=== PATIENT | female | born 1935 | race Caucasian/White ===

== ENCOUNTER → 2017-01-30 | Outpatient (CLI) | payer MEDICARE, BC ==
[~2017-01-30] MED LIST: ALDACTONE25 MG PO; AMIODARONE HCL200 MG PO; AMOXICILLIN PO; ASPIRIN PO; ASPIRIN81 M1 PO; ASPIRIN81 MG PO; AUGMENTIN PO; BENADRYL PO; BENADRYL25 MG PO; BP MED; CELEXA20 M1 PO; CELEXA20 MG PO; ELIQUIS2.5 MG PO; ELIQUIS5 MG PO; EPIPEN0.3 MG/0.1 IM; FAMOTIDINE20 M1 PO; FLAGYL PO; FLECAINIDE ACET50 MG PO; FLONASE 0.05% N16 G1; HYDRALAZINE HCL50 MG PO; HYDROCHLOROTHIA25 MG PO; HYDROXYZINE HCL25 M1 PO; IMDUR-ER30 M1 PO; LASIX20 MG PO; LISINOPRIL PO; LOPRESSOR HCT1 EACH PO; LOPRESSOR PO; METAMUCIL0.52 G PO; METOPROLOL TART25 MG PO; METOPROLOL-HCT1 EAC1 PO; METOPROLOL/HCTZ PO; NORVASC PO; PHENERGAN PO; POTASSIUM CHLO10 ME1 PO; PREDNISONE PO; PREDNISONE10 MG/DOSE PO; PRILOSEC PO; SIMVASTATIN40 MG PO; SYNTHROID PO; SYNTHROID75 MCG PO; SYNTHROID88 MCG PO; TAMBOCAR PO; TOPROL XL; TRIAMTERENE/HCT1 TA2 PO; VICODIN 5/500 T1 TAB PO; VYTORIN 10/20 T1 TAB PO; ZESTORETIC 20/11 TAB; ZOCOR PO
--- NOTE | ~2017-01-30 | MY11 ---
[facility] A Service of [facility] RADIOLOGY TEXT RESULTS PATIENT: VU KEEN LOCATION: [facility] : 37 UNIT #: [id number] AGE: [address]: Vicente Glez MD SEX: F ORDER DR: [id number] [address] [address] [id number] O MR#: [id number] Acc #: [id number] NAME: VU KEEN : 1935 SEX: F STUDY DATE/TIME: 01/30/2017 8:50 UNIT: [facility] ROOM: STUDY DESCRIPTION: MY Mammogram Screening Dig Artie Attending Physician: Vicente Glez M.D. Referring Physician: Vicente Glez M.D. Ordering Physician: Vicente Glez M.D. Primary Care Physician: Vicente Glez M.D. MEDICAL IMAGING REPORT This report is preliminary unless electronic signature is present. EXAM Digital screening mammogram 01/30/2017 HISTORY 81-year-old woman. Positive family history, sister age 55. Annual screen. COMPARISON Mammograms date to 06/12/2006 with most recent screening comparison 01/29/2016. FINDINGS Digital imaging of each breast was completed utilizing screening protocol. Review includes FDA-approved CAD device. Breast parenchyma is dense and somewhat heterogeneous with generalized fibronodular parenchymal pattern. 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 There is no interval occurring mass. I see no suspicious microcalcifications and no architectural deformity. Subareolar duct prominence bilaterally is stable. IMPRESSION Stable benign mammogram. Annual screening recommended. Patient's over the age of 40 are entered into a reminder system with target due date for the next mammogram. BIRADS: 2 Benign findings Dictated by... [facility] A Service [facility] RADIOLOGY TEXT RESULTS PATIENT: VU KEEN LOCATION: [facility] : 36 UNIT #: [id number] AGE: [address]: Vicente Glez MD SEX: F ORDER DR: Ry Ward M.D. THIS IS AN ELECTRONICALLY VERIFIED REPORT Ry Ward M.D. at 01/30/2017 12:38 PM TAYE/marlon TD: 01/30/2017 09:55 JOB #: [id number] MEDICAL IMAGING REPORT Page 1 of 1
== END | disposition home or self-care (01) ==
LOC: SMAM 08:16
DX: Z12.31 Encounter for screening mammogram for malignant neoplasm of breast (principal); Z80.3 Family history of malignant neoplasm of breast
CPT/HCPCS: G0202

== ENCOUNTER 2017-04-22 15:16 | Inpatient (IN) | payer MEDICARE, BC ==
--- NOTE | ~2017-04-22 | EKG ---
PATIENT: VU KEEN UNIT #: [id number] Ventricular Rate: 62 BPM Atrial Rate: 62 BPM P-R Interval: 222 ms QRS Duration: 142 ms Q-T Interval: 474 ms QTC Calculation(Bezet): 481 ms P [place]: 70 degrees Calculated R [place]: -29 degrees Calculated T [place]: 133 degrees Diagnosis Line: Sinus rhythm with 1st degree A-V block with Diagnosis Line: occasional Premature ventricular complexes Diagnosis Line: Left bundle branch block Diagnosis Line: Abnormal ECG Diagnosis Line: When compared with ECG of 23-APR-2017 06:06, Diagnosis Line: Premature ventricular complexes are now Present Diagnosis Line: T wave inversion more evident in Anterior leads Diagnosis Line: Confirmed by SANDRA ENGLAND MD ([id number]) on 04/29/2017 Diagnosis Line: 2:29:48 PM INTERPRETING MD: SAMANTA STEVENSON
--- NOTE | ~2017-04-22 | CR72 ---
[facility] A Service of [facility] RADIOLOGY TEXT RESULTS PATIENT: VU KEEN LOCATION: [facility] 313-01 : 36 UNIT #: [id number] AGE: [address]: Alice Leos MD SEX: F ORDER DR: [id number] [facility] [address] [facility]. [place], [place] [address] [id number] I MR#: [id number] Acc #: [id number] NAME: VU KEEN : 1935 SEX: F STUDY DATE/TIME: 04/22/2017 18:37 UNIT: CEDOF ROOM: 24751 STUDY DESCRIPTION: CR Chest Single View Portable Attending Physician: Neelam Leavitt M.D. Ordering Physician: Dewayne Mesa M.D. Primary Care Physician: Vicente Glez M.D. MEDICAL IMAGING REPORT This report is preliminary unless electronic signature is present EXAM Portable chest 1 view, 04/22/2017 COMPARISON 08/12/2016 CLINICAL HISTORY Short of air and cough for 2 days. FINDINGS There is diffuse interstitial prominence right slightly greater than left, but no dense consolidation. Overall, the findings appear to suggest new interstitial prominence superimposed on some chronic lung disease. There is no dense consolidation, effusion or pneumothorax. Question interstitial infiltrate versus edema. Dictated by... Marc Dahl M.D. THIS IS AN ELECTRONICALLY VERIFIED REPORT Marc Dahl M.D. at 04/24/2017 5:31 PM TEV/psc TD: 04/22/2017 21:37 JOB #: [id number] MEDICAL IMAGING REPORT Page 1 of 1 COPY
--- NOTE | ~2017-04-22 | EKG ---
PATIENT: VU KEEN UNIT #: [id number] Ventricular Rate: 67 BPM Atrial Rate: 67 BPM P-R Interval: 236 ms QRS Duration: 140 ms Q-T Interval: 400 ms QTC Calculation(Bezet): 422 ms P [place]: 66 degrees Calculated R [place]: -42 degrees Calculated T [place]: 119 degrees Diagnosis Line: Poor data quality, interpretation may be Diagnosis Line: adversely affected Diagnosis Line: Sinus rhythm with 1st degree A-V block Diagnosis Line: Left axis deviation Diagnosis Line: Left ventricular hypertrophy with QRS widening and Diagnosis Line: repolarization abnormality Diagnosis Line: Inferior infarct , age undetermined Diagnosis Line: Abnormal ECG Diagnosis Line: No previous ECGs available Diagnosis Line: Confirmed by SANDRA ENGLAND MD ([id number]) on 04/23/2017 Diagnosis Line: 8:22:39 PM INTERPRETING MD: SAMANTA STEVENSON
--- NOTE | ~2017-04-22 | HP ---
Unit #: [id number] #: [id number] Patient: VU KEEN [id number] [address] [place], [place] [address] [id number] I MR#: [id number] NAME: VU KEEN ROOM: 14446 Age: 81 Sex: F Admission Date: 04/22/2017 : 1935 Attending Physician: Neelam Leavitt M.D. Primary Care Physician: Vicente Glez M.D. HISTORY AND PHYSICAL CHIEF COMPLAINT Dyspnea on exertion. HISTORY This pleasant 81-year-old female with paroxysmal atrial fibrillation, who is anticoagulated, maintained on antiarrhythmics, hypertension and hypothyroidism, is admitted for dyspnea on exertion. The patient states that she was well until yesterday when she fell ill. This morning she experienced dyspnea on exertion, nausea, diaphoresis, weakness and lightheadedness, denies chest pressure with the above. She has a bit of a chronic cough which was mainly upper but notes that her cough increased over the past two days, is nonproductive. No fevers, sweats or chills with the above. No pedal edema. She presented to this emergency department this afternoon with stable vital signs, afebrile. Chest x-ray shows diffuse interstitial prominence right greater than left which could be infiltrates versus congestive heart failure. In the ER she was bolused with a liter of saline, given Solu-Medrol, Rocephin and Zithromax along with a DuoNeb. I believe the EKG is unchanged although there is poor R-wave progression which may be related to lead placement. PAST MEDICAL HISTORY 1. Nonobstructive coronary artery disease on cardiac catheterization 09/2006 which revealed luminal irregularities. 2. Paroxysmal atrial fibrillation, on Eliquis. 3. Hypertension. 4. Hyperlipidemia. 5. Thyroid cancer, status post thyroidectomy. 6. Diverticular disease. 7. Angioedema in 2010, on Avalide. PAST SURGICAL HISTORY 1. Colonoscopy. Patient was noted to have sigmoid diverticulosis and internal hemorrhoids. 2. Appendectomy. 3. Left elbow surgery 4. Thyroidectomy. 5. D/C. ALLERGIES Avalide and Norvasc. HOME MEDICATIONS From the best I can determine include: Unit #: [id number] #: [id number] Patient: VU KEEN 1. Metoprolol 25 mg daily. 2. Synthroid 0.088 mg daily. 3. Flecainide 50 mg b.i.d. 4. Celexa 20 mg q.h.s. 5. Zocor 60 mg daily. 6. Eliquis 5 mg b.i.d. FAMILY HISTORY CAD. SOCIAL HISTORY The patient lives with her son, she is a lifelong nonsmoker but is exposed to secondhand smoke, does not drink alcohol. REVIEW OF SYSTEMS Notable for shortness of breath, cough, weakness, lightheadedness, nausea, PAF, CAD, hypertension, hyperlipidemia, thyroid cancer, diverticular disease, abovementioned surgeries. All other systems were reviewed and are otherwise negative. PHYSICAL EXAMINATION GENERAL: Pleasant, young-appearing 81-year-old female currently in no acute distress. VITAL SIGNS: Temperature 97.7. Pulse 61. Respirations 16. Blood pressure 144/74. O2 saturation is 99% on room air. HEENT: Eyes PERRLA. Extraocular muscles are intact. Pharynx is benign. NECK: Supple, without adenopathy or thyromegaly. CHEST: Reveals crackles, particularly in the right side although also at the left base. CARDIAC: Normal S1 and S2, without murmur. ABDOMEN: Bowel sounds are present. The patient's bladder is full but otherwise no masses. No hepatosplenomegaly or tenderness. EXTREMITIES: Without cyanosis, clubbing or edema. Pedal pulses are present. NEUROLOGIC EXAM: Patient is awake, alert, oriented. Cranial nerves are intact. Equal strength throughout. DIAGNOSTIC STUDIES ADMISSION LABORATORY: Hematocrit is 40.3, normal white count and platelet count. Initial troponin less than 0.05, second troponin is 0.06. SMA-12: Sodium 134. IMAGING: Chest x-ray shows diffuse interstitial prominence right greater than left which could represent pneumonia versus congestive heart failure. CARDIOVASCULAR: EKG sinus rhythm, rate 67, with Qs noted inferiorly which were noted previously, and poorer R wave progression as compared to an EKG last year. However, the poorer R-wave progression may be related to lead placement. I am unsure at this point of time. Intraventricular conduction delay is old along with T-wave inversions I and aVL which are old. ASSESSMENT 1. Dyspnea on exertion and cough which could represent community-acquired pneumonia, obviously need to be concerned about congestive heart failure. Cardiac catheterization 2005 showed luminal irregularities. Patient does have a history of paroxysmal atrial fibrillation and is in her normal sinus rhythm on Eliquis and Unit #: [id number] #: [id number] Patient: VU KEEN antiarrhythmic drugs. 2. Essential hypertension. 3. Hypothyroidism. PLANS 1. Rocephin and doxycycline pending further workup. Will check a procalcitonin level. 2. STAT BNP and repeat cardiac enzymes. Will ask Cardiology to see in the morning. 3. Repeat chest x-ray in the morning. 4. Add aspirin for now. 5. Is and Os and daily weights. Dictated by Neelam Leavitt M.D. AML/cf TD: 04/22/2017 21:23 JOB #: [id number] HISTORY AND PHYSICAL Page 1 of 1 X Neelam Leavitt MD X HISTORY AND PHYSICAL
--- NOTE | ~2017-04-22 | DS ---
Unit #: [id number] #: [id number] Patient: VU KEEN [id number] [address] [address] [id number] I MR#: [id number] NAME: VU KEEN ROOM: 313 Age: 81 Sex: F Admission Date: 04/22/2017 : 1935 Discharge Date: 04/24/2017 Attending Physician: Alice Leos M.D. Primary Care Physician: Vicente Glez M.D. DISCHARGE SUMMARY PRINCIPAL DIAGNOSES 1. Acute exacerbation of chronic systolic congestive heart failure with ejection fraction of 45%. 2. Moderate pulmonary hypertension. 3. Moderate mitral regurgitation. 4. Paroxysmal atrial fibrillation. 5. Sick sinus syndrome. 6. Hypertension, controlled. 7. Hyperlipidemia. 8. Hypothyroidism following thyroidectomy for thyroid cancer. 9. Diverticular disease. CONSULTATION Dr. Velázquez, Cardiology. PROCEDURES 1. Left-sided heart catheterization on April 24, 2017 with no fixed stenosis on coronary angiography. Left ventricular systolic function reduced at 45%. Anterolateral hypokinesis noted. Moderate pulmonary artery hypertension. Moderate mitral regurgitation with a dilated left atrium. No gradient across the aortic valve noted. Sick sinus syndrome, paroxysmal atrial fibrillation was noted during catheterization. 2. A two-dimensional echocardiogram on April 23, 2015 with findings of decreased ejection fraction and mitral regurgitation. 3. Chest x-ray on April 22, 2017 with diffuse interstitial prominence, right greater than left, most consistent with pulmonary edema. CLINICAL HISTORY AND HOSPITAL COURSE Ms. Keen is a very nice 81-year-old female, who presents to the emergency department with dyspnea on exertion. Please refer to H and P for further details. Chest x-ray revealed diffuse interstitial prominence, right greater than left. Their concern is perhaps patient had pneumonia and she was placed on antibiotic therapy in addition to Solu-Medrol. They were also concerned that perhaps this might represent congestive heart failure and patient was admitted. I will note patient was afebrile throughout hospitalization and she did not have any evidence of leukocytosis. Her procalcitonin was completely normal and for this reason antibiotics were discontinued. All of these lab findings were in conjunction with an elevated BNP of greater than 1000. She was placed on diuretics and Dr. Velázquez was consulted. The patient underwent two-dimensional echocardiogram revealing a mildly Unit #: [id number] #: [id number] Patient: VU KEEN decreased ejection fraction in addition to moderate mitral regurgitation. Given these abnormal findings, the patient underwent heart cath today with normal coronaries but she is found to have pulmonary hypertension in addition to moderate mitral regurgitation. She will be placed on diuretics and plan is for patient to follow up with Dr. Velázquez as an outpatient. At which time, she will have a RENZO to further evaluate mitral function and perhaps evaluate for mitral valve replacement if necessary. Patient also had some mildly elevated blood pressures but again medications have been adjusted. Patient's other chronic condition remains stable. She does have paroxysmal atrial fibrillation but was maintained on normal sinus rhythm throughout hospitalization and we will continue a lower dose of Eliquis. Patient will be discharged home later today. DISCHARGE CONDITION Stable. DISCHARGE STATUS Discharge to home. DISCHARGE MEDICATIONS 1. Flonase 0.05% nasal spray one spray per nostril daily. 2. Eliquis 2.5 mg b.i.d. 3. Celexa 20 mg at bedtime. 4. Flecainide 50 mg b.i.d. 5. Metoprolol tartrate 12.5 mg b.i.d. 6. Lasix 40 mg daily. 7. Simvastatin 40 mg one and one half tablet p.o. nightly. 8. Hydralazine 50 mg b.i.d. 9. Aspirin 81 mg daily. 10. Spironolactone 25 mg daily. 11. Levothyroxine 88 mcg p.o. daily. 12. Imdur ER 30 mg daily. 13. Potassium chloride 10 mEq p.o. daily. DISCHARGE INSTRUCTIONS 1. The patient was instructed to follow a heart healthy, low-salt diet. 2. She can increase her activity as tolerated. FOLLOWUP The patient will follow up with Dr. Velázquez in four weeks. Again, plan is for outpatient RENZO. Patient can follow up with her primary care physician, Dr. Glez, in two to four weeks as well. Needs repeat basic metabolic panel at followup to ensure potassium level is stable given spironolactone and potassium. Time spent on discharge, 37 minutes. Dictated by... Alice Leos M.D. [facility]/keith Unit #: [id number] #: [id number] Patient: OSMANIVU JOHNSONTATI TD: 04/28/2017 12:15 JOB #: [id number] DISCHARGE SUMMARY Page 1 of 1 X Alice Leos MD X DISCHARGE SUMMARY
--- NOTE | ~2017-04-22 | CO ---
Unit #: [id number] #: [id number] Patient: VU KEEN [id number] [address] [place], [place] [address] [id number] I MR#: [id number] NAME: VU KEEN ROOM: 313 Age: 81 Sex: F Admission Date: 04/22/2017 : 1935 Attending Physician: Alice Leos M.D. Primary Care Physician: Vicente Glez M.D. Consultation Date: 04/23/2017 CONSULTATION REPORT REASON FOR CONSULTATION Dyspnea, rule out congestive heart failure, paroxysmal atrial fibrillation. HISTORY OF PRESENT ILLNESS The patient is an 81-year-old female who is known to Dr. Velázquez. Back in September 2016, the patient had a cardiac catheterization which just showed luminal irregularities. The patient's last 2D echocardiogram was on April 09, 2016, which showed an EF of 45% to 50% with mild MR and RSVP of 38 mmHg. The patient additionally has a past medical history of paroxysmal atrial fibrillation, on Eliquis, hypertension, hyperlipidemia, hypothyroidism, and she is a nonsmoker. The patient has had angioedema in the past secondary to Avalide. The patient reports that she had been in [place], [place] for the past five days. The night prior to admission, the patient states that she went to bed feeling "a little weak." She was having some shortness of breath with ambulation. She had to sleep on two pillows at night when she normally sleeps on one pillow. The next morning, the patient woke up and had increased weakness, cough, congestion and fatigue. The patient was able to have family bring her back from [facility] to [place] and patient presented to the emergency department. She denies any complaints of chest pain. She does endorse the weakness, fatigue, cough, shortness of air and congestion. In the emergency department, the patient was given a liter of normal saline, IV Solu-Medrol, Rocephin and azithromycin. The hospital team has seen the patient and has asked the cardiology team to rule out congestive heart failure. The patient was found to have a BNP of 1070. She was given 20 mg of IV Lasix x1. The patient's troponin are 0.09 and 0.06. The patient's EKG is unremarkable and shows sinus rhythm with first degree AV block. PAST MEDICAL HISTORY 1. Cardiac cath in September 2016, shows luminal irregularities. 2. 2D echocardiogram from April 09, 2016, shows an EF of 45% to 50% with mild MR and RSVP of 38 mmHg. 3. Paroxysmal atrial fibrillation, on Eliquis. 4. Hypertension. 5. Hyperlipidemia. 6. Hypothyroidism. 7. Angioedema secondary to Avalide. 8. Nonsmoker. Unit #: [id number] #: [id number] Patient: VU KEEN PAST SURGICAL HISTORY 1. Colonoscopy with sigmoid diverticulosis and moderate internal hemorrhoids on April 14, 2012. 2. Appendectomy. 3. Left elbow surgery. 4. Thyroidectomy. 5. D and C. ALLERGIES Amlodipine, hydrochlorothiazide, Avalide. HOME MEDICATIONS 1. Synthroid 88 mcg p.o. daily. 2. Flecainide 50 mg p.o. b.i.d. 3. Celexa 20 mg p.o. at bedtime. 4. Simvastatin 60 mg p.o. at bedtime. 5. Eliquis 5 mg p.o. b.i.d. 6. Metoprolol/hydrochlorothiazide 50/25 mg p.o. daily. SOCIAL HISTORY The patient denies tobacco, alcohol and illicit drug abuse. She states that she has not been as active as she has been in the past six months. FAMILY HISTORY The patient denies any family history of coronary artery disease. She does note that multiple members of her family have had cancer. REVIEW OF SYSTEMS A ten point review of systems have been done an considered otherwise negative unless indicated in the HPI. PHYSICAL EXAMINATION GENERAL: The patient is awake, alert, in no acute distress. VITAL SIGNS: Temperature 98, heart rate 66, respirations 16, blood pressure 156/67. She is oxygenating 96% on room air. HEENT: Head is atraumatic, normocephalic. Pupils are equal, round and reactive. Extraocular movements are intact. No drainage from ears or nares. NECK: Supple. Trachea is midline. No thyromegaly or lymphadenopathy is appreciated. Normal carotid upstrokes. CHEST: Lungs are diminished bilaterally with faint expiratory wheezes. CARDIOVASCULAR: S1, S2. Regular rate and rhythm. No murmurs, rubs or gallops are appreciated. ABDOMEN: Soft, nontender, nondistended. Bowel sounds are positive in all four quadrants. SKIN: Appears to be warm, dry and intact without any unusual rashes or lesions. EXTREMITIES: No clubbing, edema or cyanosis. NEUROLOGICAL: The patient is alert and oriented x3. She is pleasant and conversant. No focal defects. DIAGNOSTIC STUDIES LABORATORY: White blood cells 6.3, hemoglobin 13.3, hematocrit 40.4, platelets 127, sodium 137, potassium 3.5, chloride 104, CO2 25, BUN 19, creatinine 1, glucose 142, procalcitonin less than 0.05. Troponin is 0.09, 0.06. BNP 1070. CARDIOVASCULAR: EKG shows sinus rhythm with a first degree AV block. Unit #: [id number] #: [id number] Patient: VU KEEN IMAGING: Chest x-ray shows findings concerning for congestive heart failure. ASSESSMENT 1. Dyspnea, likely secondary to congestive heart failure. 2. Ejection fraction of 45% to 50% with mild MR with RSVP of 38 mmHg per echo in March 2016. 3. Cardiac cath from 2015, showed luminal irregularities. 4. Dyspnea. 5. Community-acquired pneumonia. 6. Paroxysmal atrial fibrillation, on Eliquis, currently in sinus rhythm. 7. Hypertension. 8. Hyperlipidemia. 9. Hypothyroidism. 10. Angioedema secondary to Avalide. 11. Nonsmoker. The patient will have a BMP and mag in the morning. A TSH and lipid panel will also be checked. Will obtain a 2D echocardiogram to assess wall motion and valvular function. Instruct the patient on strict I's and O's with 2000 mL fluid restriction with daily weights. Will give the patient Lasix 40 mg IV. Start the patient on metoprolol 25 mg p.o. b.i.d., hydralazine 25 mg p.o. b.i.d. and nitro paste half inch b.i.d. Dr. Velázquez had seen the patient. At this time, again will check a 2D echocardiogram and likely will have a cardiac cath in the morning. Dictated by... Luma Grimes A.P.R.N. for Nancy Daley TD: 04/23/2017 10:41 JOB #: [id number] CONSULTATION REPORT Page 1 of 1 X Luma Grimes APRN CONSULTATION REPORT
--- NOTE | ~2017-04-22 | EKG ---
PATIENT: VU KEEN UNIT #: [id number] Ventricular Rate: 58 BPM Atrial Rate: 58 BPM P-R Interval: 228 ms QRS Duration: 138 ms Q-T Interval: 482 ms QTC Calculation(Bezet): 473 ms P [place]: 76 degrees Calculated R [place]: -39 degrees Calculated T [place]: 111 degrees Diagnosis Line: Sinus bradycardia with 1st degree A-V block Diagnosis Line: Left axis deviation Diagnosis Line: Non-specific intra-ventricular conduction block Diagnosis Line: Left ventricular hypertrophy Diagnosis Line: Inferior infarct (cited on or before 15-APR-2014) Diagnosis Line: Cannot rule out Anterior infarct , age Diagnosis Line: undetermined Diagnosis Line: T wave abnormality, consider lateral ischemia Diagnosis Line: Abnormal ECG Diagnosis Line: When compared with ECG of 22-APR-2017 15:34, Diagnosis Line: (unconfirmed) Diagnosis Line: T wave inversion more evident in Lateral leads Diagnosis Line: Confirmed by SANDRA ENGLAND MD ([id number]) on 04/23/2017 Diagnosis Line: 8:36:41 PM INTERPRETING MD: SAMANTA STEVENSON
--- NOTE | ~2017-04-22 | CR63 ---
[facility] A Service of [facility] RADIOLOGY TEXT RESULTS PATIENT: VU KEEN LOCATION: [facility] 313-01 : [birth year] UNIT #: [id number] AGE: [address]: Alice eLos MD SEX: F ORDER DR: [id number] [facility] [address] [place], [place] [address] [id number] I MR#: [id number] Acc #: [id number] NAME: VU KEEN : 1935 SEX: F STUDY DATE/TIME: 04/23/2017 8:00 UNIT: [address] ROOM: [facility] STUDY DESCRIPTION: CR Chest 2 View Attending Physician: Alice Leos M.D. Ordering Physician: Neelam Leavitt M.D. Primary Care Physician: Vicente Glez M.D. MEDICAL IMAGING REPORT This report is preliminary unless electronic signature is present EXAM Chest x-ray, 04/23. INDICATION Shortness of air. Pneumonia. Symptoms for 2 days. FINDINGS PA and lateral views of the chest are compared with 04/22/2017. Cardiomegaly is stable. There is a small left effusion which is unchanged. There is mild infiltrate or atelectasis in both bases. Right hilar enlargement is stable. No pneumothorax. IMPRESSION Stable cardiomegaly with right hilar enlargement. Stable small left effusion with mild bibasilar atelectasis or infiltrate. Dictated by... Eric Benton Jr., M.D. THIS IS AN ELECTRONICALLY VERIFIED REPORT Eric Benton Jr., M.D. at 04/23/2017 5:11 PM AFSANEH/kassi TD: 04/23/2017 14:07 JOB #: [id number] MEDICAL IMAGING REPORT Page 1 of 1 COPY
[~2017-04-22 15:16] MED LIST changes: -ALDACTONE25 MG PO; -AMIODARONE HCL200 MG PO; -ASPIRIN81 MG PO; -ELIQUIS2.5 MG PO; -FLONASE 0.05% N16 G1; -HYDRALAZINE HCL50 MG PO; -IMDUR-ER30 M1 PO; -LASIX20 MG PO; -LOPRESSOR PO; -METOPROLOL TART25 MG PO; -METOPROLOL-HCT1 EAC1 PO; -METOPROLOL/HCTZ PO; -POTASSIUM CHLO10 ME1 PO; -SIMVASTATIN40 MG PO; -SYNTHROID88 MCG PO
[2017-04-22 15:47] LABS: BASOPHIL# 0.1 X10e3 (0-0.3); BASOPHIL% 0.7 % (0-2.5); EOSINOPHIL# 0.1 X10e3 (0-0.7); EOSINOPHIL% 1.5 % (0.0-7.0); HEMATOCRIT 40.3 % (35.0-45.0); HEMOGLOBIN 13.3 gm/dL (12.0-16.0); LYMPHOCYTE# 0.9 X10e3 (1.0-3.5); LYMPHOCYTE% 13.1 % (17.0-45.0); MEAN CELL VOLUME 89.4 FL (83-96); MEAN CORPUSCULAR HEMOGLOBIN 29.5 PG (28-34); MEAN CORPUSCULAR HGB CONC 32.9 g/dL (30-36); MONOCYTE# 0.8 X10e3 (0-1.0); MONOCYTE% 10.6 % (3.0-12.0); NEUTROPHIL# 5.3 X10e3 (1.5-7.1); NEUTROPHIL% 74.1 % (40-75); PLATELET COUNT 238 X10e3 (140-420); RED BLOOD COUNT 4.51 X10e (3.90-5.30); RED CELL DISTRIBUTION WIDTH 12.8 % (11.0-15.5); WHITE BLOOD COUNT 7.2 X10e3 (4.0-10.5)
[2017-04-22 15:51] LABS: DIFF IND NO
[2017-04-22 16:14] LABS: ALBUMIN SERUM 3.8 g/dL (3.5-5.0); BILIRUBIN, DIRECT 0.2 mg/dL (0.0-0.2); BILIRUBIN,INDIRECT 0.8 mg/dL (0.0-0.9); GLOM FILT RATE Estimated 53.2 mL/min (>60); POTASSIUM 4.1 mmol/L (3.5-5.1); PROTEIN TOTAL SERUM 7.4 g/dL (6.0-8.3)
[2017-04-22 18:02] LABS: POC - CKMB 2.2 ng/mL (0.0-7.9); POC - TROPONIN <0.05 ng/mL (<=0.05)
[2017-04-22 18:23] LABS: POC - CKMB 2.6 ng/mL (0.0-7.9); POC - TROPONIN 0.06 ng/mL (<=0.05)
[2017-04-22] MEDS ORDERED: FLECAINIDE ACET50 MG PO (19:15)
[2017-04-22] MEDS ORDERED: SYNTHROID88 MCG PO (19:15)
[2017-04-22] MEDS ORDERED: CELEXA20 MG PO (19:15)
[2017-04-22] MEDS ORDERED: SIMVASTATIN40 MG PO (19:17)
[2017-04-22] MEDS ORDERED: ELIQUIS5 MG PO (19:17)
[2017-04-22] MEDS ORDERED: METOPROLOL/HCTZ PO (19:18)
[2017-04-22 23:58] LABS: MB 3.1 ng/ml
[2017-04-23 06:03] LABS: BASOPHIL% 0.3 % (0-2.5); HEMATOCRIT 40.4 % (35.0-45.0); HEMOGLOBIN 13.3 gm/dL (12.0-16.0); LYMPHOCYTE# 0.6 X10e3 (1.0-3.5); LYMPHOCYTE% 9.8 % (17.0-45.0); MEAN CELL VOLUME 89.1 FL (83-96); MEAN CORPUSCULAR HEMOGLOBIN 29.4 PG (28-34); MEAN CORPUSCULAR HGB CONC 32.9 g/dL (30-36); MEAN PLATELET VOLUME 8.2 FL (6.5-11.5); MONOCYTE# 0.1 X10e3 (0-1.0); MONOCYTE% 1.9 % (3.0-12.0); NEUTROPHIL# 5.5 X10e3 (1.5-7.1); PLATELET COUNT 217 X10e3 (140-420); RED BLOOD COUNT 4.53 X10e (3.90-5.30); RED CELL DISTRIBUTION WIDTH 12.6 % (11.0-15.5); WHITE BLOOD COUNT 6.3 X10e3 (4.0-10.5)
[2017-04-23 06:21] LABS: DIFF IND NO
[2017-04-23 06:55] LABS: BLOOD UREA NITROGEN 19 mg/dL (9-23); CALCIUM SERUM 8.6 mg/dL (8.4-10.2); CARBON DIOXIDE 25 mmol/L (22-31); CHLORIDE 104 mmol/L (100-111); CK TOTAL 54 IU/L (26-140); GLOM FILT RATE Estimated 53.2 mL/min (>60); GLUCOSE FASTING 142 mg/dL (70-110); POTASSIUM 3.5 mmol/L (3.5-5.1); SODIUM 137 mmol/L (135-145)
[2017-04-23 07:17] LABS: PROCALCITONIN <0.05 NG/ML
[2017-04-23 10:52] LABS: CHOLESTEROL 162 mg/dL (0-200); HDL CHOLESTEROL 54 mg/dL (35-95); LDL CHOLESTEROL 96 mg/dL (-130); LDL/HDL RATIO 2 RATIO (0-4); TRIGLYCERIDES 58 mg/dL (10-160)
[2017-04-24 08:06] LABS: HEMATOCRIT 39.8 % (35.0-45.0); HEMOGLOBIN 13.1 gm/dL (12.0-16.0); MEAN CELL VOLUME 89.7 FL (83-96); MEAN CORPUSCULAR HEMOGLOBIN 29.5 PG (28-34); MEAN CORPUSCULAR HGB CONC 32.9 g/dL (30-36); MEAN PLATELET VOLUME 8.2 FL (6.5-11.5); RED BLOOD COUNT 4.43 X10e (3.90-5.30); WHITE BLOOD COUNT 7.8 X10e3 (4.0-10.5)
[2017-04-24 08:14] LABS: BUN/CREATININE RATIO 26.66; CALCIUM SERUM 8.9 mg/dL (8.4-10.2); CREATININE SERUM 0.9 mg/dL (0.6-1.4); GLOM FILT RATE Estimated 60.4 mL/min (>60); MAGNESIUM 1.9 mg/dL (1.6-3.0); POTASSIUM 3.9 mmol/L (3.5-5.1)
[2017-04-24 08:25] LABS: PARTIAL THROMBOPLASTIN TIME 26.4 SECONDS (23.5-31.3); PROTHROMBIN TIME (PATIENT) 10.9 SECONDS (10.0-11.7)
[2017-04-24] MEDS ORDERED: FLONASE 0.05% N16 G1 (16:56)
[2017-04-24] MEDS ORDERED: ELIQUIS2.5 MG PO (16:57)
[2017-04-24] MEDS ORDERED: METOPROLOL TART25 MG PO (17:00)
[2017-04-24] MEDS ORDERED: LASIX20 MG PO (17:01)
[2017-04-24] MEDS ORDERED: HYDRALAZINE HCL50 MG PO (17:03)
[2017-04-24] MEDS ORDERED: ASPIRIN81 MG PO (17:04)
[2017-04-24] MEDS ORDERED: ALDACTONE25 MG PO (17:05)
[2017-04-24] MEDS ORDERED: IMDUR-ER30 M1 PO (17:06)
[2017-04-24] MEDS ORDERED: POTASSIUM CHLO10 ME1 PO (17:07)
== END 2017-04-24 18:51 | disposition home or self-care (01) | DRG 287 ==
LOC: CED 15:16 → CEDOF 21:00 → C3A PCU 21:00 → CED 21:22 → CEDOF 21:22 → C3A PCU 04-23 02:08 → CEDOF 04-23 02:08 → C3A PCU 04-23 02:08
PROVIDERS: Emergency Medicine; Internal Medicine; Internal Medicine Cardiovascular Disease; Nurse Practitioner
PROC: B246YZZ Ultrasonography of Right and Left Heart using Other Contrast (ICD-10-PCS; principal; 2017-04-23)
PROC: 4A023N8 Measurement of Cardiac Sampling and Pressure, Bilateral, Percutaneous Approach (ICD-10-PCS; 2017-04-24)
PROC: B211YZZ Fluoroscopy of Multiple Coronary Arteries using Other Contrast (ICD-10-PCS; 2017-04-24)
PROC: B215YZZ Fluoroscopy of Left Heart using Other Contrast (ICD-10-PCS; 2017-04-24)
DX: I11.0 Hypertensive heart disease with heart failure (principal); I27.2 Other secondary pulmonary hypertension; I48.0 Paroxysmal atrial fibrillation; I50.23 Acute on chronic systolic (congestive) heart failure; E78.5 Hyperlipidemia, unspecified; E03.9 Hypothyroidism, unspecified; Z90.49 Acquired absence of other specified parts of digestive tract; Z85.850 Personal history of malignant neoplasm of thyroid; Z88.8 Allergy status to other drugs, medicaments and biological substances; I34.0 Nonrheumatic mitral (valve) insufficiency
CPT/HCPCS: 36415; 71010; 71020; 80048; 80061; 80076; 82308; 82550; 82553; 82810; 83735; 83880; 84443; 84484; 85025; 85027; 85610; 85730; 93005; 93306; 94640; 96361; 96374; 99285; C1769; C1887; C1894; J0456; J0696; J1644; J1940; J2250; J2930; J3010

== ENCOUNTER 2017-06-13 17:51 | Observation (INO) | payer MEDICARE, BC ==
[~2017-06-13] VITALS: Ht 167.6 cm; Wt 68.0 kg
--- NOTE | ~2017-06-13 | EKG ---
PATIENT: VU KEEN UNIT #: [id number] Ventricular Rate: 45 BPM Atrial Rate: 45 BPM P-R Interval: 244 ms QRS Duration: 134 ms Q-T Interval: 516 ms QTC Calculation(Bezet): 446 ms P Clyde: 59 degrees Calculated R Clyde: -24 degrees Calculated T Clyde: 135 degrees Diagnosis Line: Marked sinus bradycardia with 1st degree A-V block Diagnosis Line: with Premature supraventricular complexes Diagnosis Line: Left ventricular hypertrophy with QRS widening and Diagnosis Line: repolarization abnormality Diagnosis Line: Abnormal ECG Diagnosis Line: When compared with ECG of 13-JUN-2017 18:24, Diagnosis Line: (unconfirmed) Diagnosis Line: Premature supraventricular complexes are now Diagnosis Line: Present Diagnosis Line: T wave inversion more evident in Anterolateral Diagnosis Line: leads Diagnosis Line: Confirmed by SANDRA ENGLAND MD ([id number]) on 06/14/2017 Diagnosis Line: 6:02:37 PM INTERPRETING MD: SAMANTA STEVENSON
--- NOTE | ~2017-06-13 | DS ---
Unit #: [id number] #: [id number] Patient: VU KEEN [id number] [facility]. [place], [place] [address] [id number] I MR#: [id number] NAME: VU KEEN ROOM: 575 Age: 81 Sex: F Admission Date: 06/13/2017 : 1935 Discharge Date: 06/14/2017 Attending Physician: Neto Malave M.D. Primary Care Physician: Vicnete Glez M.D. DISCHARGE SUMMARY SHORT STAY SUMMARY HISTORY OF PRESENT ILLNESS This is a pleasant 81-year-old female who typically follows in the office with Dr. Velázquez. She has a past medical history of paroxysmal atrial fibrillation, on chronic anticoagulation with Eliquis, hypertension, hyperlipidemia, hypothyroidism, and sick sinus node syndrome. The patient states she was in her typical state of health until yesterday afternoon. She and her family had gone out to dinner when she reports she felt her heart racing. This was associated with some chest tightness during the racing episode, but she denied any shortness of air, diaphoresis, or radiation of the chest tightness. It is notable that patient reports she did have two bourbons just prior to feeling the palpitations of her heart. She states they went home. She took her metoprolol and tried to lay down; however, the family insisted that she come to the emergency room for evaluation. On arrival to the ER, the patient was found to be atrial fibrillation with rapid ventricular response, rate of 122 beats per minute. She was given a Cardizem bolus, as well as started on a Cardizem drip. Throughout the night, her heart rate slowed, and she became markedly bradycardic. Cardizem was discontinued. Repeat EKG this a.m. shows sinus bradycardia, rate of 45 beats per minute, with a first degree AV block, LVH, nonspecific ST-T wave abnormalities noted, and QTc interval of 446 msec. The patient did have some PVCs. Her electrolytes were checked. Potassium is 3.7 and magnesium was found to be 1.9. Point of care troponin was slightly elevated at 0.10. The patient denies any further complaints of chest pain. She says she is very active at home, gets around very well, and does not ever have complaints of angina with exertion or shortness of breath. The only time she reports she has some chest tightness or shortness of breath is when she feels her heart racing. She has been maintained on a beta cassie, as well as flecainide and amiodarone with Dr. Velázquez. It is notable the patient did have a 2D echocardiogram in March 2017 that showed an LVEF of 50% to 55%, RVSP of 54 mmHg, and mild to moderate MR. She also underwent heart catheterization in March 2017 which showed no significant fixed stenosis in her coronary anatomy. LVEF was mild to moderately compromised with an EF of 45. She did have some moderate pulmonary artery hypertension with a PAP of 55/24 and a wedge pressure of 22/30. 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 There was no gradient across the aortic valve on pullback tracings. The patient was started on hydralazine and long-acting nitrates for afterload reduction at that time. She was not Unit #: [id number] #: [id number] Patient: VU KEEN able to be started on an PAPA or an ARB secondary to angioedema induced in the past by Avalide. Patient also had a chest x-ray performed while in the emergency room which showed no acute findings. We admitted the patient for evaluation of the above. PAST MEDICAL HISTORY 1. Left and right heart cath on April 24, 2017, showed no significant fixed stenosis in the coronary arteries. Left ventricular ejection fraction is mild to moderately compromised with EF of 45%. Anterolateral hypokinesis. Moderate pulmonary hypertension is seen with pulmonary artery pressure 55/24 and pulmonary wedge pressure 22/30 with tall V waves secondary to mitral regurgitation. There is moderate mitral regurgitation into a dilated left atrium. 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 There was no gradient across the aortic valve on pullback pressure tracings. 2. A 2D echocardiogram on April 23, 2017, showed an LVEF of 50% to 55%, mild to moderate dilated left atrium, right ventricular systolic pressure 54 mmHg consistent with moderate pulmonary hypertension. Aortic valve leaflet sclerotic with no stenosis. Structurally normal mitral valve but mild to moderate MR is present. No evidence of pericardial effusion. 3. Paroxysmal atrial fibrillation, on Eliquis. 4. Hypertension. 5. Hyperlipidemia. 6. Hypothyroidism. 7. 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 PAST SURGICAL HISTORY 1. Colonoscopy. 2. Thyroidectomy. 3. Appendectomy. 4. Elbow surgery on the left. 5. D and C. 6. Cardiac catheterization. ALLERGIES Amlodipine, hydrochlorothiazide, and Avalide which caused angioedema. HOME MEDICATIONS 1. Synthroid 88 mcg p.o. daily. 2. Flecainide 50 mg p.o. b.i.d. 3. Celexa 20 mg p.o. at bedtime. 4. Simvastatin 60 mg p.o. at bedtime. 5. Eliquis 2.5 mg p.o. b.i.d. 6. Lasix 40 mg p.o. daily. 7. Hydralazine 50 mg p.o. b.i.d. 8. Aspirin 81 mg p.o. daily. 9. Aldactone 25 mg p.o. daily. 10. Imdur-ER 30 mg p.o. daily. 11. Potassium chloride 10 mEq p.o. daily. 12. Amiodarone 200 mg p.o. daily. 13. Metoprolol 12.5 mg p.o. b.i.d. SOCIAL HISTORY The patient lives with her son. She is a lifelong nonsmoker and denies illicit drugs. She does drink alcohol on occasion. She reportedly had a Unit #: [id number] #: [id number] Patient: VU KEEN couple of bourbons prior to her episode of palpitations this admission. FAMILY HISTORY Denies a family history of coronary artery disease. PHYSICAL EXAMINATION GENERAL: This is a very pleasant 81-year-old female in no acute distress. VITAL SIGNS: Temperature 98.3, respiratory rate 18, pulse 45-55, and blood pressure 104/47 to 133/65. HEENT: Head is atraumatic and normocephalic. Pupils are equal and round. Extraocular movements are intact. NECK: Supple. Trachea is midline. Old scar is noted. No lymphadenopathy and normal carotid upstrokes. CARDIOVASCULAR: S1 and S2, regular rate and rhythm. No murmur, gallop, or rub. CHEST: Lungs are clear to auscultation. No adventitious breath sounds, no rales, no rhonchi, no wheezing. ABDOMEN: Soft, nontender, and nondistended. Bowel sounds are present. EXTREMITIES: Pulses are palpable. No clubbing, cyanosis, or edema. NEUROLOGIC: She is awake, alert, and oriented x3. She is very pleasant. No focal deficits are noted. DIAGNOSTIC STUDIES LABORATORY: Sodium 138, potassium 3.7, chloride 97, CO2 of 26, BUN 19, creatinine 1.5, glucose 107, and magnesium is 1.9. Point of care troponin was 0.10. Hemoglobin 14.2, hematocrit 42.5, WBC 5.2, and platelet count 255,000. IMAGING: Chest x-ray shows volume loss and left hemithorax consistent with previous left lower lobe lung resection, stable linear scarring in the right base, no acute airspace, and heart size is stable. No acute chest findings. CARDIOLOGY: EKG initially showed atrial fibrillation with rapid ventricular response, rate of 122 beats per minute, nonspecific interventricular block, T wave abnormality nonspecific, rate of 122 beats per minute. Repeat EKG shows marked sinus bradycardia with a first degree AV block, occasional PVC, LVH, and nonspecific ST and T wave abnormality is noted. IMPRESSION 1. Atrial fibrillation with rapid ventricular response, converted with Cardizem, currently sinus bradycardia. 2. Left ventricular ejection fraction of 45%. Patient had a cardiac catheterization recently in March 2017 which showed normal coronaries. 3. History of sick sinus syndrome. 4. Mild chronic kidney disease. 5. Pulmonary hypertension. 6. Hypertension. 7. Hyperlipidemia. 8. Hypothyroidism. 9. Indeterminant troponin. PLAN The patient was admitted secondary to atrial fibrillation with RVR. She has spontaneously converted and is now sinus bradycardia, rate of 40s to 50s. The patient is asymptomatic with this. Will plan to adjust her Unit #: [id number] #: [id number] Patient: VU KEEN TATI medications as her heart rate is on the lower end of normal. A repeat echo had been ordered; however, this was cancelled as the patient just had one recently in March of this year. At present, her Lopressor will be held, and she will continue on her flecainide and amiodarone. This was discussed with Dr. Malave and he was agreeable. There is no reason for repeat ischemic workup at this time. The patient is not a candidate for PAPA for ARB therapy secondary to reaction to Avalide in the past with angioedema. ADDENDUM Dr. Malave has seen and evaluated the patient. He feels she is okay to be discharged home today. Her amiodarone and her flecainide will be continued at the same dosing. However, her metoprolol has been discontinued at this time secondary to bradycardia. No other med changes were made. The patient was advised to follow up with her primary care physician in one to two weeks, and she will follow up with Dr. Velázquez in approximately two to three weeks. This was all discussed with the patient, and she is agreeable. She is ready to be sent home. All discharge instructions were reviewed. The patient was advised to monitor for any recurrences of atrial fibrillation with RVR and to notify the office if this should occur. Dictated by... Soto Arredondo/nate TD: 06/14/2017 20:49 JOB #: [id number] DISCHARGE SUMMARY Page 1 of 1 X Emily Granados APRN X DISCHARGE SUMMARY
--- NOTE | ~2017-06-13 | EKG ---
PATIENT: VU KEEN UNIT #: [id number] Ventricular Rate: 60 BPM Atrial Rate: 60 BPM P-R Interval: 228 ms QRS Duration: 126 ms Q-T Interval: 404 ms QTC Calculation(Bezet): 404 ms P Kerman: 46 degrees Calculated R Kerman: -47 degrees Calculated T Kerman: 108 degrees Diagnosis Line: Sinus rhythm with 1st degree A-V block Diagnosis Line: Left axis deviation Diagnosis Line: Left ventricular hypertrophy with QRS widening and Diagnosis Line: repolarization abnormality Diagnosis Line: Inferior infarct (cited on or before 13-JUN-2017) Diagnosis Line: Abnormal ECG Diagnosis Line: When compared with ECG of 13-JUN-2017 18:01, Diagnosis Line: (unconfirmed) Diagnosis Line: Sinus rhythm has replaced Atrial fibrillation Diagnosis Line: Vent. rate has decreased BY 62 BPM Diagnosis Line: Confirmed by SANDRA ENGLAND MD ([id number]) on 06/14/2017 Diagnosis Line: 5:58:36 PM INTERPRETING MD: SAMANTA STEVENSON
--- NOTE | ~2017-06-13 | CR72 ---
[facility] A Service of [facility] RADIOLOGY TEXT RESULTS PATIENT: VU KEEN LOCATION: [facility] 575-01 : 36 UNIT #: [id number] AGE: [address]: Neto Malave MD SEX: F ORDER DR: [id number] [facility] [address] [facility]. [place], [place] [address] [id number] MR#: [id number] Acc #: [id number] NAME: VU KEEN : 1935 SEX: F STUDY DATE/TIME: 06/13/2017 18:21 UNIT: CED ROOM: 59114 STUDY DESCRIPTION: CR Chest Single View Portable Attending Physician: Neto Malave M.D. Ordering Physician: Michelle Chan M.D. Primary Care Physician: Vicente Glez M.D. MEDICAL IMAGING REPORT This report is preliminary unless electronic signature is present EXAM AP portable chest DATE 06/13/2017 HISTORY Chest pain and shortness of breath today. Thyroid cancer. Atrial fibrillation. Congestive heart failure. Left lower lobe lung resection. Hypertension. COMPARISON PA and lateral chest radiograph 04/23/2017 FINDINGS Volume loss and left hemithorax consistent with previous left lower lobe lung resection history. Stable linear scarring in the right base. No acute airspace disease. Heart size is stable. Stable asymmetric prominence in the right hilum. Surgical clips are seen at the thoracic inlet. IMPRESSION No acute chest findings. Dictated by... Ruchi Cervantes M.D. THIS IS AN ELECTRONICALLY VERIFIED REPORT Ruchi Cervantes M.D. at 06/14/2017 2:02 PM LLShanelle/tiffany TD: 06/14/2017 00:45 JOB #: [id number] [facility] A Service of [facility] RADIOLOGY TEXT RESULTS PATIENT: VU KEEN LOCATION: [facility] 575-01 : 36 UNIT #: [id number] AGE: [address]: Neto Malave MD SEX: F ORDER DR: MEDICAL IMAGING REPORT Page 1 of 1 COPY
--- NOTE | ~2017-06-13 | EKG ---
PATIENT: VU KEEN UNIT #: [id number] Ventricular Rate: 122 BPM Atrial Rate: 107 BPM QRS Duration: 132 ms Q-T Interval: 310 ms QTC Calculation(Bezet): 441 ms Calculated R Houghton: -56 degrees Calculated T Houghton: 114 degrees Diagnosis Line: Atrial fibrillation with rapid ventricular Diagnosis Line: response with premature ventricular or aberrantly Diagnosis Line: conducted complexes Diagnosis Line: Left axis deviation Diagnosis Line: Non-specific intra-ventricular conduction block Diagnosis Line: Inferior infarct , age undetermined Diagnosis Line: Cannot rule out Anterior infarct , age Diagnosis Line: undetermined Diagnosis Line: T wave abnormality, consider lateral ischemia Diagnosis Line: Abnormal ECG Diagnosis Line: When compared with ECG of 24-APR-2017 06:01, Diagnosis Line: Significant changes have occurred Diagnosis Line: Confirmed by SANDRA ENGLAND MD ([id number]) on 06/14/2017 Diagnosis Line: 5:57:59 PM INTERPRETING MD: SAMANTA STEVENSON
[~2017-06-13 17:51] MED LIST changes: +ALDACTONE25 MG PO; +ASPIRIN81 MG PO; +ELIQUIS2.5 MG PO; +FLONASE 0.05% N16 G1; +HYDRALAZINE HCL50 MG PO; +IMDUR-ER30 M1 PO; +LASIX20 MG PO; +METOPROLOL TART25 MG PO; +METOPROLOL/HCTZ PO; +POTASSIUM CHLO10 ME1 PO; +SIMVASTATIN40 MG PO; +SYNTHROID88 MCG PO
[2017-06-13 18:29] LABS: BASOPHIL# 0.1 X10e3 (0-0.3); BASOPHIL% 1.2 % (0-2.5); EOSINOPHIL# 0.3 X10e3 (0-0.7); EOSINOPHIL% 4.9 % (0.0-7.0); HEMATOCRIT 42.5 % (35.0-45.0); HEMOGLOBIN 14.2 gm/dL (12.0-16.0); LYMPHOCYTE# 1.3 X10e3 (1.0-3.5); MEAN CELL VOLUME 88.6 FL (83-96); MEAN CORPUSCULAR HEMOGLOBIN 29.7 PG (28-34); MEAN CORPUSCULAR HGB CONC 33.5 g/dL (30-36); MEAN PLATELET VOLUME 7.8 FL (6.5-11.5); MONOCYTE# 0.9 X10e3 (0-1.0); MONOCYTE% 16.7 % (3.0-12.0); NEUTROPHIL# 2.6 X10e3 (1.5-7.1); NEUTROPHIL% 51.2 % (40-75); PLATELET COUNT 255 X10e3 (140-420); RED BLOOD COUNT 4.79 X10e (3.90-5.30); RED CELL DISTRIBUTION WIDTH 13.5 % (11.0-15.5); WHITE BLOOD COUNT 5.2 X10e3 (4.0-10.5)
[2017-06-13 18:30] LABS: DIFF IND NO
[2017-06-13 18:30] LABS: POC - TROPONIN <0.05 ng/mL (<=0.05)
[2017-06-13 18:51] LABS: ALBUMIN SERUM 4.2 g/dL (3.5-5.0); BILIRUBIN, DIRECT 0.2 mg/dL (0.0-0.2); BILIRUBIN,INDIRECT 1.4 mg/dL (0.0-0.9); BILIRUBIN,TOTAL 1.6 mg/dL (0.2-2.0); BUN/CREATININE RATIO 12.66; CALCIUM SERUM 9.7 mg/dL (8.4-10.2); CREATININE SERUM 1.5 mg/dL (0.6-1.4); GLOM FILT RATE Estimated 32.6 mL/min (>60); MAGNESIUM 1.9 mg/dL (1.6-3.0); POTASSIUM 3.7 mmol/L (3.5-5.1); PROTEIN TOTAL SERUM 7.9 g/dL (6.0-8.3)
[2017-06-13 19:36] LABS: URINE SOURCE CLEAN CATCH
[2017-06-13 19:50] LABS: URINE APPEARANCE CLEAR; URINE BILIRUBIN NEG (NEG); URINE BLOOD NEG (NEG); URINE COLOR YELLOW; URINE GLUCOSE NEG (NEG); URINE KETONE NEG (NEG); URINE LEUKOCYTE ESTERASE NEG (NEG); URINE NITRATE NEG (NEG); URINE PROTEIN NEG (NEG); URINE SPECIFIC GRAVITY 1.011 (1.003-1.035)
[2017-06-13 20:00] LABS: CULTURE INDICATED? NO
[2017-06-13 20:03] LABS: POC - CKMB 3.6 ng/mL (0.0-7.9); POC - TROPONIN 0.1 ng/mL (<=0.05)
[2017-06-13] MEDS ORDERED: FLECAINIDE ACET50 MG PO (23:02)
[2017-06-13] MEDS ORDERED: AMIODARONE HCL200 MG PO (23:03)
[2017-06-13] MEDS ORDERED: METOPROLOL-HCT1 EAC1 PO (23:04)
[2017-06-14] MEDS ORDERED: LOPRESSOR PO (04:46)
[2017-06-14 07:30] LABS: PROTHROMBIN TIME (PATIENT) 10.8 SECONDS (10.0-11.7)
== END 2017-06-14 17:13 | disposition home or self-care (01) ==
LOC: CED 17:51 → C5C 19:30 → CEDOF 19:30 → CED 20:30 → C5C 06-14 02:17 → CEDOF 06-14 02:17 → C5C 06-14 17:13
PROVIDERS: Emergency Medicine
DX: I48.0 Paroxysmal atrial fibrillation (principal); I12.9 Hypertensive chronic kidney disease with stage 1 through stage 4 chronic kidney disease, or unspecified chronic kidney disease; N18.9 Chronic kidney disease, unspecified; I27.2 Other secondary pulmonary hypertension; E78.5 Hyperlipidemia, unspecified; E89.0 Postprocedural hypothyroidism; Z90.49 Acquired absence of other specified parts of digestive tract; Z88.8 Allergy status to other drugs, medicaments and biological substances; Z79.01 Long term (current) use of anticoagulants; Z79.82 Long term (current) use of aspirin; Z79.899 Other long term (current) drug therapy
CPT/HCPCS: 36415; 71010; 80048; 80076; 81003; 82553; 83735; 84484; 85025; 85610; 93005; 96361; 96374; 99291; G0378; J0153; J1940